=== PATIENT | female | born 1970 | race Two or more races ===

== ENCOUNTER 2021-03-19 12:42 | Emergency (ER) | payer MEDICAID, OTHER ==
[~2021-03-19] VITALS: Ht 157.5 cm; Wt 59.0 kg
[2021-03-19] MEDS ORDERED: ACETAMINOPHEN 325MG TABLET PO ONE (13:45)
[2021-03-19] MEDS ORDERED: IBUP-2029 MT (15:48)
[2021-03-19 16:09] VITALS: BP 143/74
== END 2021-03-19 16:10 | disposition home or self-care (01) ==
LOC: ER 12:42
DX: S70.02XA Contusion of left hip, initial encounter (principal); W18.30XA Fall on same level, unspecified, initial encounter; Y93.89 Activity, other specified; Y92.89 Other specified places as the place of occurrence of the external cause; Y99.8 Other external cause status
CPT/HCPCS: 73502; 99284